=== PATIENT | female | born 1995 | race Caucasian/White ===

== ENCOUNTER 2024-12-16 23:09 | Emergency (ER) | payer OTHER ==
[~2024-12-16] VITALS: Ht 165.1 cm; Wt 64.0 kg
[2024-12-16 23:14] VITALS: O2SAT 98
[2024-12-17 00:10] LABS: ALANINE AMINOTRANSFERASE 18 IU/L (10-49); ALBUMIN 4.4 g/dL (3.2-4.8); ASPARTATE AMINOTRANSFERASE 21 IU/L (<34); BASOPHILS % 0.6 % (0.0-2.0); BILIRUBIN DIRECT 0.2 mg/dL (<=3.0); BILIRUBIN TOTAL 0.6 mg/dL (0.1-1.0); CALCIUM 9.4 mg/dL (8.7-10.4); CARBON DIOXIDE 21 mEq/L (21-32); CHLORIDE 106 mEq/L (98-107); CREATININE 0.8 mg/dL (0.6-1.0); EOSINOPHILS % 0.1 % (0.0-5.0); GLUCOSE 137 mg/dL (70-105); HCG SCREEN NEGATIVE; HEMATOCRIT. 40.4 % (36.0-48.0); LYMPHOCYTES % 14.1 % (20.0-50.0); MEAN CORPUSCULAR HEMOGLOBIN 29.8 pg (28.0-32.0); MEAN CORPUSCULAR HGB CONC 34.5 g/dL (31.0-37.0); MEAN CORPUSCULAR VOLUME 86.1 fL (81.0-99.0); MEAN PLATELET VOLUME 7.6 fl (7.4-10.4); MONOCYTES % 2.4 % (2.0-8.0); NEUTROPHILS % 82.8 % (40.0-76.0); PLATELET 304 x1000/uL (130-400); POTASSIUM 3.5 mEq/L (3.5-5.1); PROTEIN TOTAL 7.5 g/dL (6.0-8.3); RED BLOOD CELL COUNT 4.69 mill/uL (4.2-5.4); RED CELL DISTRIBUTION WIDTH 13.3 % (11.6-14.6); SODIUM 139 mEq/L (136-145); UREA NITROGEN BLOOD 10 mg/dL (9-23); WHITE BLOOD COUNT 8.7 x1000/uL (4.5-11.0)
[2024-12-17] MEDS: SODIUM CHLORIDE 0.9% 1,000 ML IV ONE (00:54)
[2024-12-17] MEDS: MORPHINE SULFATE 4 MG/ML INJ (FOR IV/IM USE) IV ONE (01:04)
[2024-12-17] MEDS: ONDANSETRON HCL 4MG/2ML INJ IV ONE (01:05)
[2024-12-17] MEDS ORDERED: ONDA4TAB50 MT (02:31)
[2024-12-17 02:41] VITALS: BP 109/60; PULSE 58; RESP 17; TEMP 36.7; O2SAT 100
== END 2024-12-17 02:43 | disposition home or self-care (01) ==
LOC: ER 23:09
DX: R10.33 Periumbilical pain (principal); R11.10 Vomiting, unspecified
CPT/HCPCS: 80076; 80048; 84703; 83690; 85025; 36415; 99284; 74176; 96360; 96361; J7030; Z7610 ×4; 81003; J2270; J2405